=== PATIENT | male | born 1950 | race Caucasian/White ===

== ENCOUNTER → 2018-06-23 | Outpatient (CLI) | payer OTHER, MEDICARE ==
[~2018-06-23] MED LIST: ATORVASTATIN CA40 MG PO; BACTRIM,SEPT1 TABLET PO; COUMADIN1 MG PO; DAILY MULTIPLE1 EACH PO; DILAUDID2 MG PO; IRON325 M1 PO; JANUMET 50/11 TABLET PO; KEFLEX500 MG PO; SENNA-TIME S T1 EACH PO; TYLENOL REGULA325 MG PO; VITAMIN C1000 MG PO
== END | disposition home or self-care (01) ==
LOC: CDC 11:15
DX: Z01.810 Encounter for preprocedural cardiovascular examination (principal)
CPT/HCPCS: 93000

== ENCOUNTER 2018-07-11 09:35 | Day surgery (SDC) | payer OTHER ==
[~2018-07-11] VITALS: Ht 175.3 cm; Wt 65.8 kg
[~2018-07-11 09:35] MED LIST changes: +AMARYL1 MG PO; +LIPITOR10 MG PO; +LOTENSIN5 MG PO; +ULTRAM50 MG PO
[2018-07-11 10:31] VITALS: BP 146/74
[2018-07-11 11:18] LABS: HEMATOCRIT 36.5 % (38.0-50.0); HEMOGLOBIN 12.1 G/DL (12.5-16.6); MCV 89.5 FL (86-99)
[2018-07-11 15:00] VITALS: BP 141/67
[2018-07-11 16:00] VITALS: BP 147/73
== END 2018-07-11 16:20 | disposition home or self-care (01) ==
LOC: SDC 09:35
PROVIDERS: Orthopaedic Surgery
DX: M75.111 Incomplete rotator cuff tear or rupture of right shoulder, not specified as traumatic (principal); M25.311 Other instability, right shoulder; M75.41 Impingement syndrome of right shoulder; M25.511 Pain in right shoulder; E11.22 Type 2 diabetes mellitus with diabetic chronic kidney disease; N18.9 Chronic kidney disease, unspecified; Z79.84 Long term (current) use of oral hypoglycemic drugs; E78.5 Hyperlipidemia, unspecified; Z96.652 Presence of left artificial knee joint; Z82.49 Family history of ischemic heart disease and other diseases of the circulatory system; Z82.61 Family history of arthritis; Z83.3 Family history of diabetes mellitus; F17.200 Nicotine dependence, unspecified, uncomplicated
CPT/HCPCS: 82948; 85014; 85018; C1713; J0171; J0690; J1100; J1885; J2250; J2405; J2795; J3010